=== PATIENT | male | born 1945 | race Caucasian/White ===

== ENCOUNTER → 2019-12-07 | Outpatient (CLI) | payer MEDICARE ==
[~2019-12-07] MED LIST: LIDOCAINE/PRILOCAINE CREAM 5GM TUBE TP ONE
[2019-12-07 17:00] VITALS: BP 130/62
== END | disposition home or self-care (01) ==
LOC: WHH 09:30
PROVIDERS: ATTEND Family Medicine
DX: S30.810A Abrasion of lower back and pelvis, initial encounter (principal); E11.40 Type 2 diabetes mellitus with diabetic neuropathy, unspecified; I10 Essential (primary) hypertension; E78.5 Hyperlipidemia, unspecified; X58.XXXA Exposure to other specified factors, initial encounter; Y93.89 Activity, other specified; Y92.89 Other specified places as the place of occurrence of the external cause; Y99.8 Other external cause status
CPT/HCPCS: 82948; G0463; J3490

== ENCOUNTER → 2019-12-18 | Outpatient (CLI) | payer MEDICARE ==
[2019-12-18 17:10] VITALS: BP 157/73
== END | disposition home or self-care (01) ==
LOC: WHH 14:00
PROVIDERS: ATTEND Family Medicine
DX: S31.821D Laceration without foreign body of left buttock, subsequent encounter (principal); E11.40 Type 2 diabetes mellitus with diabetic neuropathy, unspecified; I10 Essential (primary) hypertension; E78.5 Hyperlipidemia, unspecified; J43.9 Emphysema, unspecified; Z87.891 Personal history of nicotine dependence; Z79.82 Long term (current) use of aspirin; Z86.73 Personal history of transient ischemic attack (TIA), and cerebral infarction without residual deficits; X58.XXXD Exposure to other specified factors, subsequent encounter
CPT/HCPCS: 82948; A6210; A6248; G0463

== ENCOUNTER → 2019-12-25 | Outpatient (CLI) | payer MEDICARE ==
[2019-12-25 15:25] VITALS: BP 141/72
== END | disposition home or self-care (01) ==
LOC: WHH 13:30
PROVIDERS: ATTEND Family Medicine
DX: E11.622 Type 2 diabetes mellitus with other skin ulcer (principal); L89.321 Pressure ulcer of left buttock, stage 1; L98.411 Non-pressure chronic ulcer of buttock limited to breakdown of skin; E11.40 Type 2 diabetes mellitus with diabetic neuropathy, unspecified; E11.51 Type 2 diabetes mellitus with diabetic peripheral angiopathy without gangrene; I10 Essential (primary) hypertension; E78.5 Hyperlipidemia, unspecified; J44.9 Chronic obstructive pulmonary disease, unspecified; Z79.82 Long term (current) use of aspirin; Z87.891 Personal history of nicotine dependence; Z86.73 Personal history of transient ischemic attack (TIA), and cerebral infarction without residual deficits
CPT/HCPCS: A6210; G0463

== ENCOUNTER → 2019-12-27 | Outpatient (CLI) | payer MEDICARE | END | disposition home or self-care (01) | LOC: WHH 12:13 | PROVIDERS: ATTEND Family Medicine | DX: E11.622 Type 2 diabetes mellitus with other skin ulcer (principal); L89.321 Pressure ulcer of left buttock, stage 1; L98.411 Non-pressure chronic ulcer of buttock limited to breakdown of skin; E11.40 Type 2 diabetes mellitus with diabetic neuropathy, unspecified; E11.51 Type 2 diabetes mellitus with diabetic peripheral angiopathy without gangrene; I10 Essential (primary) hypertension; E78.5 Hyperlipidemia, unspecified; J44.9 Chronic obstructive pulmonary disease, unspecified; Z79.82 Long term (current) use of aspirin; Z87.891 Personal history of nicotine dependence; Z86.73 Personal history of transient ischemic attack (TIA), and cerebral infarction without residual deficits | CPT/HCPCS: 93922; 93925 ==

== ENCOUNTER → 2020-01-29 | Outpatient (CLI) | payer MEDICARE ==
[2020-01-29 15:12] VITALS: BP 102/79
== END | disposition home or self-care (01) ==
LOC: WHH 13:15
PROVIDERS: ATTEND Family Medicine
DX: E11.622 Type 2 diabetes mellitus with other skin ulcer (principal); L89.321 Pressure ulcer of left buttock, stage 1; L98.411 Non-pressure chronic ulcer of buttock limited to breakdown of skin; E11.40 Type 2 diabetes mellitus with diabetic neuropathy, unspecified; E11.51 Type 2 diabetes mellitus with diabetic peripheral angiopathy without gangrene; I25.10 Atherosclerotic heart disease of native coronary artery without angina pectoris; I25.2 Old myocardial infarction; I10 Essential (primary) hypertension; E78.5 Hyperlipidemia, unspecified; J43.9 Emphysema, unspecified; Z79.82 Long term (current) use of aspirin; Z87.891 Personal history of nicotine dependence; Z86.73 Personal history of transient ischemic attack (TIA), and cerebral infarction without residual deficits
CPT/HCPCS: A6213; G0463

== ENCOUNTER → 2020-02-12 | Outpatient (CLI) | payer MEDICARE ==
[2020-02-12 15:24] VITALS: BP 115/51
== END | disposition home or self-care (01) ==
LOC: WHH 14:00
PROVIDERS: ATTEND Family Medicine
DX: E11.622 Type 2 diabetes mellitus with other skin ulcer (principal); L89.323 Pressure ulcer of left buttock, stage 3; L98.412 Non-pressure chronic ulcer of buttock with fat layer exposed; E11.40 Type 2 diabetes mellitus with diabetic neuropathy, unspecified; E11.51 Type 2 diabetes mellitus with diabetic peripheral angiopathy without gangrene; I10 Essential (primary) hypertension; I25.10 Atherosclerotic heart disease of native coronary artery without angina pectoris; I25.2 Old myocardial infarction; E78.5 Hyperlipidemia, unspecified; J44.9 Chronic obstructive pulmonary disease, unspecified; Z79.82 Long term (current) use of aspirin; Z87.891 Personal history of nicotine dependence; Z86.73 Personal history of transient ischemic attack (TIA), and cerebral infarction without residual deficits
CPT/HCPCS: 11042; A6213; A6248

== ENCOUNTER → 2020-02-26 | Outpatient (CLI) | payer MEDICARE ==
[2020-02-26 16:49] VITALS: BP 134/77
== END | disposition home or self-care (01) ==
LOC: WHH 14:00
PROVIDERS: ATTEND Family Medicine
DX: E11.622 Type 2 diabetes mellitus with other skin ulcer (principal); L89.323 Pressure ulcer of left buttock, stage 3; L97.411 Non-pressure chronic ulcer of right heel and midfoot limited to breakdown of skin; E11.40 Type 2 diabetes mellitus with diabetic neuropathy, unspecified; E11.51 Type 2 diabetes mellitus with diabetic peripheral angiopathy without gangrene; I10 Essential (primary) hypertension; I25.10 Atherosclerotic heart disease of native coronary artery without angina pectoris; I25.2 Old myocardial infarction; E78.5 Hyperlipidemia, unspecified; J43.9 Emphysema, unspecified; Z79.82 Long term (current) use of aspirin; Z87.891 Personal history of nicotine dependence; Z86.73 Personal history of transient ischemic attack (TIA), and cerebral infarction without residual deficits
CPT/HCPCS: A6212; G0463

== ENCOUNTER → 2020-03-04 | Outpatient (CLI) | payer MEDICARE ==
[2020-03-04 15:55] VITALS: BP 120/58
== END | disposition home or self-care (01) ==
LOC: WHH 13:45
PROVIDERS: ATTEND Family Medicine
DX: E11.622 Type 2 diabetes mellitus with other skin ulcer (principal); L89.323 Pressure ulcer of left buttock, stage 3; L98.411 Non-pressure chronic ulcer of buttock limited to breakdown of skin; E11.40 Type 2 diabetes mellitus with diabetic neuropathy, unspecified; E11.51 Type 2 diabetes mellitus with diabetic peripheral angiopathy without gangrene; I10 Essential (primary) hypertension; I25.10 Atherosclerotic heart disease of native coronary artery without angina pectoris; I25.2 Old myocardial infarction; J44.9 Chronic obstructive pulmonary disease, unspecified; E78.5 Hyperlipidemia, unspecified; Z79.82 Long term (current) use of aspirin; Z87.891 Personal history of nicotine dependence; Z86.73 Personal history of transient ischemic attack (TIA), and cerebral infarction without residual deficits
CPT/HCPCS: A6210; G0463

== ENCOUNTER 2020-03-11 13:30 | Outpatient (CLI) | payer MEDICARE ==
[2020-03-11 15:05] VITALS: BP 100/47
== END 2020-03-11 15:47 | disposition home or self-care (01) ==
LOC: WHH 13:30
PROVIDERS: ATTEND Family Medicine
DX: E11.622 Type 2 diabetes mellitus with other skin ulcer (principal); L89.323 Pressure ulcer of left buttock, stage 3; L98.418 Non-pressure chronic ulcer of buttock with other specified severity; E11.40 Type 2 diabetes mellitus with diabetic neuropathy, unspecified; I10 Essential (primary) hypertension; I25.10 Atherosclerotic heart disease of native coronary artery without angina pectoris; I25.2 Old myocardial infarction; J44.9 Chronic obstructive pulmonary disease, unspecified; E78.5 Hyperlipidemia, unspecified; Z79.82 Long term (current) use of aspirin; Z87.891 Personal history of nicotine dependence; Z86.73 Personal history of transient ischemic attack (TIA), and cerebral infarction without residual deficits
CPT/HCPCS: G0463

== ENCOUNTER 2020-10-18 13:37 | Inpatient (IN) | payer MEDICARE ==
[~2020-10-18] VITALS: Ht 185.4 cm; Wt 88.5 kg
[2020-10-18 14:59] LABS: BASOPHILS % (AUTO) 0.1 % (0.0-5.0); HEMATOCRIT 39.4 % (42-54); LYMPHOCYTES % (AUTO) 7.8 % (21.0-51.0); MEAN CORPUSCULAR HEMOGLOBIN 29.8 pg (27.0-33.0); MEAN CORPUSCULAR VOLUME 87.8 fL (79-99); MONOCYTES % (AUTO) 9.8 % (3.0-13.0); NEUTROPHILS % (AUTO) 81.6 % (40.0-77.0); PLATELET COUNT (AUTO) 201 K/uL (130-400); RED BLOOD CELL COUNT(AUTO) 4.49 MIL/uL (4.50-6.20); RED CELL DISTRIBUTION WIDTH 12.9 % (11.0-15.5); WHITE BLOOD COUNT (AUTO) 7.3 K/uL (4.8-10.8)
[2020-10-18] MEDS ORDERED: 0.9%NACL 50ML 50 ML IV ONE (15:00)
[2020-10-18] MEDS ORDERED: CEFTRIAXONE 1G VIAL ONE (15:00)
[2020-10-18 15:05] LABS: INR 1.06 (0.85-1.15); PROTHROMBIN TIME 11.3 SEC (9.6-11.6)
[2020-10-18 15:06] LABS: CREATININE 1.3 mg/dL (0.5-1.5); POTASSIUM 4.4 mmol/L (3.5-5.1)
[2020-10-18 15:07] LABS: MAGNESIUM 1.8 mg/dL (1.80-2.40); PARTIAL THROMBOPLASTIN TIME 29.1 SEC (26.3-35.5)
[2020-10-18 15:16] LABS: ALBUMIN 2.9 g/dL (3.5-5.0); BILIRUBIN,TOTAL 0.6 mg/dL (0.2-1.0); TOTAL PROTEIN, SERUM 6.8 g/dL (6.0-8.3)
[2020-10-18] MEDS ORDERED: AZITHROMYCIN 500MG+NS 250ML 250 ML IV ONE (15:30)
[2020-10-18 15:36] LABS: B-TYPE NATRIURETIC PEPTIDE 42 pg/mL (0-100)
[2020-10-18] MEDS ORDERED: ACETAMINOPHEN 500 MG TABLET ONE (15:44)
[2020-10-18] MEDS ORDERED: DEXAMETHASONE SOD PHOSPHATE 10MG/ML 1ML VIAL ONE (16:01)
[2020-10-18] MEDS ORDERED: DOXYCYCLINE 100MG+NS 250ML 250 ML IV SCH (18:00)
[2020-10-18] MEDS ORDERED: ERGOCALCIFEROL (VITAMIN D2) 50,000 UNIT CAPSULE PO ONE (18:00)
[2020-10-18] MEDS ORDERED: CEFTRIAXONE 1G VIAL IV SCH (18:00)
[2020-10-18] MEDS ORDERED: ONDANSETRON 4MG INJ IV PRN (18:00)
[2020-10-18] MEDS ORDERED: ACETAMINOPHEN 325 MG TAB PO PRN (18:00)
[2020-10-18] MEDS ORDERED: ONDANSETRON 4MG INJ ONE (20:47)
[2020-10-18] MEDS ORDERED: ACETYLCYSTEINE 600 MG CAPSULE ONE (20:47)
[2020-10-18] MEDS ORDERED: FAMOTIDINE 20MG TAB ONE (20:47)
[2020-10-18] MEDS ORDERED: ACETYLCYSTEINE 600 MG CAPSULE PO SCH (21:00)
[2020-10-18] MEDS: FAMOTIDINE 20MG TAB PO SCH (21:00)
[2020-10-19 05:53] LABS: BASOPHILS % (AUTO) 0.2 % (0.0-5.0); HEMATOCRIT 40.8 % (42-54); LYMPHOCYTES % (AUTO) 11.8 % (21.0-51.0); MEAN CORPUSCULAR HEMOGLOBIN 29.7 pg (27.0-33.0); MEAN CORPUSCULAR HGB CONC 33.1 g/dL (32.0-36.0); MEAN CORPUSCULAR VOLUME 89.7 fL (79-99); MONOCYTES % (AUTO) 4.1 % (3.0-13.0); NEUTROPHILS % (AUTO) 82.9 % (40.0-77.0); PLATELET COUNT (AUTO) 198 K/uL (130-400); RED BLOOD CELL COUNT(AUTO) 4.55 MIL/uL (4.50-6.20); RED CELL DISTRIBUTION WIDTH 12.8 % (11.0-15.5); WHITE BLOOD COUNT (AUTO) 5.1 K/uL (4.8-10.8)
[2020-10-19 06:11] LABS: ALBUMIN 2.6 g/dL (3.5-5.0); BILIRUBIN,TOTAL 0.5 mg/dL (0.2-1.0); CREATININE 1.3 mg/dL (0.5-1.5); CRP QUANTITATIVE 130.7 mg/L (0.00-9.0); POTASSIUM 4.6 mmol/L (3.5-5.1); TOTAL PROTEIN, SERUM 6.9 g/dL (6.0-8.3)
[2020-10-19] MEDS ORDERED: DEXAMETHASONE 4 MG TAB PO SCH (09:00)
[2020-10-19] MEDS: FAMOTIDINE 20MG TAB PO SCH ×2 (09:00→21:00)
[2020-10-19] MEDS: ENOXAPARIN SODIUM 60 MG/0.6 ML SQ SCH (09:00)
[2020-10-19] MEDS: ASCORBIC ACID 500 MG TAB PO SCH (09:00)
[2020-10-19] MEDS: ZINC SULFATE 220 CAPSULE PO SCH (09:00)
[2020-10-19] MEDS ORDERED: ASCORBIC ACID 500 MG TAB ONE (10:07)
[2020-10-19] MEDS ORDERED: ENOXAPARIN SODIUM 60 MG/0.6 ML SQ ONE (10:07)
[2020-10-19] MEDS ORDERED: FAMOTIDINE 20MG TAB ONE (10:08)
[2020-10-19] MEDS ORDERED: ACETYLCYSTEINE 600 MG CAPSULE ONE (10:09)
[2020-10-19] MEDS ORDERED: ZINC SULFATE 220 CAPSULE ONE (10:09)
[2020-10-20 05:59] LABS: BASOPHILS % (AUTO) 0.1 % (0.0-5.0); HEMATOCRIT 41.8 % (42-54); LYMPHOCYTES % (AUTO) 6.7 % (21.0-51.0); MEAN CORPUSCULAR HEMOGLOBIN 29.2 pg (27.0-33.0); MEAN CORPUSCULAR HGB CONC 32.5 g/dL (32.0-36.0); MEAN CORPUSCULAR VOLUME 89.7 fL (79-99); MONOCYTES % (AUTO) 7.8 % (3.0-13.0); NEUTROPHILS % (AUTO) 84.9 % (40.0-77.0); PLATELET COUNT (AUTO) 234 K/uL (130-400); RED BLOOD CELL COUNT(AUTO) 4.66 MIL/uL (4.50-6.20); RED CELL DISTRIBUTION WIDTH 12.8 % (11.0-15.5); WHITE BLOOD COUNT (AUTO) 10.9 K/uL (4.8-10.8)
[2020-10-20 06:44] LABS: ALBUMIN 2.7 g/dL (3.5-5.0); BILIRUBIN,TOTAL 0.5 mg/dL (0.2-1.0); CREATININE 1.3 mg/dL (0.5-1.5); CRP QUANTITATIVE 111.6 mg/L (0.00-9.0); POTASSIUM 4.5 mmol/L (3.5-5.1); TOTAL PROTEIN, SERUM 7.3 g/dL (6.0-8.3)
[2020-10-20] MEDS ORDERED: CLINDAMYCIN IVPB 300MG/50ML 50 ML IV SCH (06:45)
[2020-10-20] MEDS: ZINC SULFATE 220 CAPSULE PO SCH (09:00)
[2020-10-20] MEDS: DEXAMETHASONE SOD PHOSPHATE 4 MG/ML 1ML VIAL IVP SCH (09:00)
[2020-10-20] MEDS: FAMOTIDINE 20MG TAB PO SCH ×2 (09:00→21:00)
[2020-10-20] MEDS: ASCORBIC ACID 500 MG TAB PO SCH (09:00)
[2020-10-20] MEDS: ENOXAPARIN SODIUM 60 MG/0.6 ML SQ SCH (09:00)
[2020-10-20] MEDS ORDERED: DOXYCYCLINE HYCLATE 100 MG TABLET PO SCH (09:00)
[2020-10-20] MEDS ORDERED: DOXYCYCLINE HYCLATE 100 MG TABLET PO ONE ×2 (09:44→21:46)
[2020-10-20] MEDS ORDERED: ACETYLCYSTEINE 600 MG CAPSULE ONE ×2 (09:44→20:45)
[2020-10-20] MEDS ORDERED: ENOXAPARIN SODIUM 60 MG/0.6 ML SQ ONE (09:44)
[2020-10-20] MEDS ORDERED: FAMOTIDINE 20MG TAB ONE ×2 (09:44→20:45)
[2020-10-20] MEDS ORDERED: ASCORBIC ACID 500 MG TAB ONE (09:44)
[2020-10-20] MEDS ORDERED: ZINC SULFATE 220 CAPSULE ONE (09:45)
[2020-10-20] MEDS ORDERED: DEXAMETHASONE SOD PHOSPHATE 4 MG/ML 1ML VIAL ONE (09:45)
[2020-10-20] MEDS: INSULIN HUMULIN R 100 UNIT/ML 3ML SQ SCH ×3 (11:30→21:00)
[2020-10-20] MEDS ORDERED: 0.9% NACL 250ML 250 ML IV ONE (14:42)
[2020-10-20] MEDS ORDERED: CEFTRIAXONE 1G VIAL ONE (17:43)
[2020-10-20] MEDS ORDERED: METOPROLOL TARTRATE 25 MG TAB ONE (20:46)
[2020-10-20] MEDS ORDERED: DOXYCYCLINE 100MG+NS 250ML 250 ML IV ONE (20:46)
[2020-10-20] MEDS ORDERED: ATORVASTATIN 40 MG TABLET ONE (20:46)
[2020-10-20] MEDS ORDERED: INSULIN HUMULIN R 100 UNIT/ML 3ML ONE (20:52)
[2020-10-20] MEDS: METOPROLOL TARTRATE 25 MG TAB PO SCH (21:00)
[2020-10-20] MEDS: ATORVASTATIN 20 MG TABLET PO SCH (21:00)
[2020-10-21 05:43] LABS: HEMATOCRIT 39.8 % (42-54); LYMPHOCYTES % (AUTO) 8.5 % (21.0-51.0); MEAN CORPUSCULAR HEMOGLOBIN 30.4 pg (27.0-33.0); MEAN CORPUSCULAR HGB CONC 33.7 g/dL (32.0-36.0); MEAN CORPUSCULAR VOLUME 90.2 fL (79-99); MONOCYTES % (AUTO) 6.5 % (3.0-13.0); PLATELET COUNT (AUTO) 227 K/uL (130-400); RED BLOOD CELL COUNT(AUTO) 4.41 MIL/uL (4.50-6.20); RED CELL DISTRIBUTION WIDTH 12.8 % (11.0-15.5); WHITE BLOOD COUNT (AUTO) 8.3 K/uL (4.8-10.8)
[2020-10-21 06:00] LABS: ALBUMIN 2.6 g/dL (3.5-5.0); BILIRUBIN,TOTAL 0.5 mg/dL (0.2-1.0); CRP QUANTITATIVE 175.3 mg/L (0.00-9.0); POTASSIUM 4.9 mmol/L (3.5-5.1); TOTAL PROTEIN, SERUM 7.2 g/dL (6.0-8.3)
[2020-10-21] MEDS: INSULIN HUMULIN R 100 UNIT/ML 3ML SQ SCH ×4 (07:30→21:02)
[2020-10-21] MEDS: DEXAMETHASONE SOD PHOSPHATE 4 MG/ML 1ML VIAL IVP SCH (09:00)
[2020-10-21] MEDS: FAMOTIDINE 20MG TAB PO SCH ×2 (09:00→21:00)
[2020-10-21] MEDS: ENOXAPARIN SODIUM 60 MG/0.6 ML SQ SCH (09:00)
[2020-10-21] MEDS: ASPIRIN 81MG CHEW TAB PO SCH (09:00)
[2020-10-21] MEDS: ZINC SULFATE 220 CAPSULE PO SCH (09:00)
[2020-10-21] MEDS: METOPROLOL TARTRATE 25 MG TAB PO SCH ×2 (09:00→21:00)
[2020-10-21] MEDS: ASCORBIC ACID 500 MG TAB PO SCH (09:00)
[2020-10-21] MEDS ORDERED: PHARMACY COMMUNICATION MISC SCH (09:15)
[2020-10-21] MEDS ORDERED: ASPIRIN 81MG CHEW TAB ONE (09:34)
[2020-10-21] MEDS ORDERED: DEXAMETHASONE SOD PHOSPHATE 4 MG/ML 1ML VIAL ONE (09:35)
[2020-10-21] MEDS ORDERED: METOPROLOL TARTRATE 25 MG TAB ONE (09:35)
[2020-10-21] MEDS ORDERED: DOXYCYCLINE HYCLATE 100 MG TABLET PO ONE (09:36)
[2020-10-21] MEDS ORDERED: ENOXAPARIN SODIUM 60 MG/0.6 ML SQ ONE (09:36)
[2020-10-21] MEDS ORDERED: ASCORBIC ACID 500 MG TAB ONE (09:36)
[2020-10-21] MEDS ORDERED: ACETYLCYSTEINE 600 MG CAPSULE ONE (09:37)
[2020-10-21] MEDS ORDERED: ZINC SULFATE 220 CAPSULE ONE (09:37)
[2020-10-21] MEDS ORDERED: FAMOTIDINE 20MG TAB ONE (09:37)
[2020-10-21] MEDS ORDERED: GLIP2.5T PO (13:09)
[2020-10-21] MEDS ORDERED: LOSA100T2 PO (13:09)
[2020-10-21] MEDS ORDERED: ATOR40TA71 PO (13:09)
[2020-10-21] MEDS ORDERED: FURO20TA4 PO (13:09)
[2020-10-21] MEDS ORDERED: ASPI-1443 PO (13:09)
[2020-10-21] MEDS ORDERED: MULT-1192 PO (13:09)
[2020-10-21] MEDS ORDERED: METO25TA6 PO (13:09)
[2020-10-21] MEDS ORDERED: IBUP-2733 PO (13:09)
[2020-10-21] MEDS ORDERED: GABA-529 PO (13:09)
[2020-10-21] MEDS ORDERED: INSULIN HUMULIN R 100 UNIT/ML 3ML ONE (13:51)
[2020-10-21] MEDS ORDERED: REMDESIVIR (EUA) 520 200 MG in 0.9% NACL 250ML 250 ML IV ONE (14:00)
[2020-10-21] MEDS ORDERED: COMPOUND IV REFRIGERATED 1 EACH IVSOLN MISC PRN (14:00)
[2020-10-21 14:20] VITALS: BP 148/79
[2020-10-21 16:00] VITALS: BP 140/53
[2020-10-21 16:50] LABS: HEMOGLOBIN A1C 7.4 % (4.0-6.0)
[2020-10-21 18:57] LABS: APPEARANCE,URINE CLOUDY (CLEAR); BILIRUBIN,URINE SMALL (NEGATIVE); GLUCOSE, URINE (UA) NEGATIVE (NEGATIVE); KETONES,URINE NEGATIVE (NEGATIVE); LEUKOCYTE ESTERASE ,URINE SMALL (NEGATIVE); NITRATE,URINE NEGATIVE (NEGATIVE); OCCULT BLOOD,URINE LARGE (NEGATIVE); PH,URINE 5.5 (5.0-8.0); PROTEIN,URINE 100 mg/dL (NEGATIVE)
[2020-10-21 19:01] LABS: COLOR,URINE AMBER (YELLOW)
[2020-10-21 19:23] LABS: BACTERIA,URINE Few /HPF (None Seen); MUCUS,URINE Few LPF (None Seen); SQUAMOUS EPITHELIAL CELL,UR 0-2 /HPF (0-2); YEAST,URINE BUDDING Moderate /HPF (None Seen)
[2020-10-21 20:24] VITALS: BP 128/54
[2020-10-21] MEDS: ATORVASTATIN 20 MG TABLET PO SCH (21:00)
[2020-10-21] MEDS: ACETAMINOPHEN 325 MG TAB PO PRN (21:00)
[2020-10-21] MEDS ORDERED: HYDRALAZINE 20MG/ML VIAL IV PRN (22:45)
[2020-10-22] VITALS (8 sets, daily range): BP systolic 122–133; BP diastolic 49–76
[2020-10-22] MEDS: INSULIN HUMULIN R 100 UNIT/ML 3ML SQ SCH ×4 (05:35→21:46)
[2020-10-22 06:09] LABS: BASOPHILS % (AUTO) 0.1 % (0.0-5.0); HEMATOCRIT 38.1 % (42-54); LYMPHOCYTES % (AUTO) 9.1 % (21.0-51.0); MEAN CORPUSCULAR HGB CONC 33.3 g/dL (32.0-36.0); MEAN CORPUSCULAR VOLUME 90.1 fL (79-99); NEUTROPHILS % (AUTO) 82.5 % (40.0-77.0); PLATELET COUNT (AUTO) 254 K/uL (130-400); RED BLOOD CELL COUNT(AUTO) 4.23 MIL/uL (4.50-6.20); RED CELL DISTRIBUTION WIDTH 12.7 % (11.0-15.5)
[2020-10-22 06:34] LABS: ALBUMIN 2.4 g/dL (3.5-5.0); BILIRUBIN,TOTAL 0.4 mg/dL (0.2-1.0); CREATININE 1.1 mg/dL (0.5-1.5); CRP QUANTITATIVE 75.3 mg/L (0.00-9.0); POTASSIUM 4.3 mmol/L (3.5-5.1); TOTAL PROTEIN, SERUM 6.7 g/dL (6.0-8.3)
[2020-10-22] MEDS: ASPIRIN 81MG CHEW TAB PO SCH (09:38)
[2020-10-22] MEDS: ZINC SULFATE 220 CAPSULE PO SCH (09:39)
[2020-10-22] MEDS: ENOXAPARIN SODIUM 60 MG/0.6 ML SQ SCH (09:39)
[2020-10-22] MEDS: FAMOTIDINE 20MG TAB PO SCH ×2 (09:39→21:31)
[2020-10-22] MEDS: ASCORBIC ACID 500 MG TAB PO SCH (09:39)
[2020-10-22] MEDS: DEXAMETHASONE SOD PHOSPHATE 4 MG/ML 1ML VIAL IVP SCH (09:40)
[2020-10-22] MEDS: REMDESIVIR (EUA) 520 100 MG in 0.9% NACL 250ML 250 ML IV SCH (13:46)
[2020-10-22] MEDS: ACETAMINOPHEN 325 MG TAB PO PRN (13:51)
[2020-10-22] MEDS: CEFTRIAXONE 1G VIAL IVP SCH (18:29)
[2020-10-22] MEDS: ATORVASTATIN 20 MG TABLET PO SCH (21:31)
[2020-10-23 03:52] VITALS: BP 132/72
[2020-10-23 04:53] LABS: BASOPHILS % (AUTO) 0.3 % (0.0-5.0); HEMATOCRIT 39.2 % (42-54); LYMPHOCYTES % (AUTO) 11.1 % (21.0-51.0); MEAN CORPUSCULAR HGB CONC 33.4 g/dL (32.0-36.0); MEAN CORPUSCULAR VOLUME 89.7 fL (79-99); MONOCYTES % (AUTO) 7.8 % (3.0-13.0); NEUTROPHILS % (AUTO) 79.1 % (40.0-77.0); PLATELET COUNT (AUTO) 274 K/uL (130-400); RED BLOOD CELL COUNT(AUTO) 4.37 MIL/uL (4.50-6.20); RED CELL DISTRIBUTION WIDTH 12.5 % (11.0-15.5); WHITE BLOOD COUNT (AUTO) 9.7 K/uL (4.8-10.8)
[2020-10-23 05:21] LABS: ALBUMIN 2.5 g/dL (3.5-5.0); BILIRUBIN,TOTAL 0.3 mg/dL (0.2-1.0); CREATININE 1.2 mg/dL (0.5-1.5); CRP QUANTITATIVE 38.4 mg/L (0.00-9.0); POTASSIUM 4.4 mmol/L (3.5-5.1); TOTAL PROTEIN, SERUM 7.1 g/dL (6.0-8.3)
[2020-10-23] MEDS: INSULIN HUMULIN R 100 UNIT/ML 3ML SQ SCH ×4 (05:36→21:49)
[2020-10-23] MEDS: REMDESIVIR LABS MISC SCH (06:00)
[2020-10-23 08:21] VITALS: BP 149/52
[2020-10-23] MEDS: DEXAMETHASONE SOD PHOSPHATE 4 MG/ML 1ML VIAL IVP SCH (09:44)
[2020-10-23] MEDS: ASPIRIN 81MG CHEW TAB PO SCH (09:44)
[2020-10-23] MEDS: FAMOTIDINE 20MG TAB PO SCH ×2 (09:44→21:45)
[2020-10-23] MEDS: ASCORBIC ACID 500 MG TAB PO SCH (09:44)
[2020-10-23] MEDS: ZINC SULFATE 220 CAPSULE PO SCH (09:44)
[2020-10-23] MEDS: ENOXAPARIN SODIUM 60 MG/0.6 ML SQ SCH (09:48)
[2020-10-23] MEDS: PANTOPRAZOLE 40 MG TAB DR PO SCH ×2 (10:31→21:45)
[2020-10-23] MEDS: TICAGRELOR 90 MG TABLET PO SCH ×2 (10:31→21:45)
[2020-10-23 12:00] VITALS: BP 130/70
[2020-10-23] MEDS: REMDESIVIR (EUA) 520 100 MG in 0.9% NACL 250ML 250 ML IV SCH (14:09)
[2020-10-23] MEDS: CEFTRIAXONE 1G VIAL IVP SCH (16:41)
[2020-10-23 16:51] VITALS: BP 142/71
[2020-10-23 19:00] VITALS: BP 137/65
[2020-10-23] MEDS: ATORVASTATIN 20 MG TABLET PO SCH (21:45)
[2020-10-24] VITALS (7 sets, daily range): BP systolic 128–162; BP diastolic 64–83
[2020-10-24 05:21] LABS: BASOPHILS % (AUTO) 0.4 % (0.0-5.0); EOSINOPHILS % (AUTO) 0.2 % (0.0-8.0); HEMATOCRIT 42.9 % (42-54); LYMPHOCYTES % (AUTO) 8.8 % (21.0-51.0); MEAN CORPUSCULAR HEMOGLOBIN 29.7 pg (27.0-33.0); MEAN CORPUSCULAR HGB CONC 33.6 g/dL (32.0-36.0); MEAN CORPUSCULAR VOLUME 88.5 fL (79-99); MONOCYTES % (AUTO) 6.9 % (3.0-13.0); NEUTROPHILS % (AUTO) 81.3 % (40.0-77.0); PLATELET COUNT (AUTO) 310 K/uL (130-400); RED BLOOD CELL COUNT(AUTO) 4.85 MIL/uL (4.50-6.20); RED CELL DISTRIBUTION WIDTH 12.6 % (11.0-15.5); WHITE BLOOD COUNT (AUTO) 11.8 K/uL (4.8-10.8)
[2020-10-24 05:52] LABS: ALBUMIN 2.8 g/dL (3.5-5.0); BILIRUBIN,TOTAL 0.5 mg/dL (0.2-1.0); CREATININE 1.1 mg/dL (0.5-1.5); POTASSIUM 4.3 mmol/L (3.5-5.1); TOTAL PROTEIN, SERUM 6.5 g/dL (6.0-8.3)
[2020-10-24] MEDS: INSULIN HUMULIN R 100 UNIT/ML 3ML SQ SCH ×5 (06:17→20:53)
[2020-10-24] MEDS: ENOXAPARIN SODIUM 40 MG/0.4 ML SYRINGE SQ SCH (09:24)
[2020-10-24] MEDS: ZINC SULFATE 220 CAPSULE PO SCH (09:24)
[2020-10-24] MEDS: TICAGRELOR 90 MG TABLET PO SCH ×2 (09:25→20:49)
[2020-10-24] MEDS: PANTOPRAZOLE 40 MG TAB DR PO SCH ×2 (09:25→20:50)
[2020-10-24] MEDS: ASCORBIC ACID 500 MG TAB PO SCH (09:25)
[2020-10-24] MEDS: FAMOTIDINE 20MG TAB PO SCH ×2 (09:25→20:50)
[2020-10-24] MEDS: ASPIRIN 81MG CHEW TAB PO SCH (09:25)
[2020-10-24] MEDS: DEXAMETHASONE SOD PHOSPHATE 4 MG/ML 1ML VIAL IVP SCH (09:26)
[2020-10-24] MEDS: LOSARTAN 50 MG TABLET PO SCH ×2 (11:17→20:50)
[2020-10-24] MEDS: METOPROLOL TARTRATE 25 MG TAB PO SCH ×2 (11:17→20:50)
[2020-10-24] MEDS: MULTIVITAMIN TABLET PO SCH (11:22)
[2020-10-24] MEDS: SENNOSIDES 8.6 MG TABLET PO SCH (12:18)
[2020-10-24] MEDS: DOCUSATE SODIUM 100 MG CAP PO SCH (12:18)
[2020-10-24] MEDS: POLYETHYLENE GLYCOL 3350 17 GM POWD.PACK PO SCH (12:18)
[2020-10-24] MEDS: REMDESIVIR (EUA) 520 100 MG in 0.9% NACL 250ML 250 ML IV SCH (13:39)
[2020-10-24] MEDS: FUROSEMIDE 20 MG TABLET PO SCH (14:09)
[2020-10-24] MEDS ORDERED: BISACODYL 10 MG SUPP.RECT RC PRN (15:15)
[2020-10-24] MEDS ORDERED: 0.9%NACL 50ML 50 ML IV ONE (16:10)
[2020-10-24] MEDS: CEFTRIAXONE 1G VIAL IVP SCH (17:58)
[2020-10-24] MEDS: HONEY 1 APPL/ML TUBE TP SCH (17:59)
[2020-10-24 18:13] LABS: MEAN CORPUSCULAR HEMOGLOBIN 29.4 pg (27.0-33.0); MEAN CORPUSCULAR HGB CONC 33.3 g/dL (32.0-36.0); MEAN CORPUSCULAR VOLUME 88.5 fL (79-99); PLATELET COUNT (AUTO) 317 K/uL (130-400); RED CELL DISTRIBUTION WIDTH 12.5 % (11.0-15.5); WHITE BLOOD COUNT (AUTO) 9.3 K/uL (4.8-10.8)
[2020-10-24 19:17] LABS: BAND NEUTROPHILS % (MANUAL) 2 % (0-2); LYMPHOCYTES % (MANUAL) 10 % (22-44); MONOCYTES % (MANUAL) 4 % (2-9); REACTIVE LYMPHOCYTES 2 % (0-0); SEGMENTED NEUTROPHILS % 82 % (40-70)
[2020-10-24 19:18] LABS: MAN.DIFF COMMENT-IMPRESSION MANUAL DIFFERENTIAL
[2020-10-24] MEDS: REMDESIVIR LABS MISC SCH (19:28)
[2020-10-24] MEDS: ATORVASTATIN 20 MG TABLET PO SCH (20:49)
[2020-10-25 00:40] VITALS: BP 121/67
[2020-10-25 04:00] VITALS: BP 141/77
[2020-10-25 05:07] LABS: BASOPHILS % (AUTO) 0.5 % (0.0-5.0); EOSINOPHILS % (AUTO) 0.4 % (0.0-8.0); LYMPHOCYTES % (AUTO) 6.9 % (21.0-51.0); MEAN CORPUSCULAR HGB CONC 33.9 g/dL (32.0-36.0); MEAN CORPUSCULAR VOLUME 88.5 fL (79-99); MONOCYTES % (AUTO) 7.3 % (3.0-13.0); NEUTROPHILS % (AUTO) 81.4 % (40.0-77.0); PLATELET COUNT (AUTO) 361 K/uL (130-400); RED CELL DISTRIBUTION WIDTH 12.7 % (11.0-15.5); WHITE BLOOD COUNT (AUTO) 12.7 K/uL (4.8-10.8)
[2020-10-25 05:29] LABS: ALBUMIN 3.1 g/dL (3.5-5.0); BILIRUBIN,TOTAL 0.9 mg/dL (0.2-1.0); CREATININE 1.2 mg/dL (0.5-1.5); CRP QUANTITATIVE 43.9 mg/L (0.00-9.0); POTASSIUM 4.4 mmol/L (3.5-5.1); TOTAL PROTEIN, SERUM 6.9 g/dL (6.0-8.3)
[2020-10-25] MEDS: INSULIN HUMULIN R 100 UNIT/ML 3ML SQ SCH ×3 (06:09→16:20)
[2020-10-25 08:00] VITALS: BP 136/82
[2020-10-25] MEDS: TICAGRELOR 90 MG TABLET PO SCH (09:01)
[2020-10-25] MEDS: DEXAMETHASONE SOD PHOSPHATE 4 MG/ML 1ML VIAL IVP SCH (09:01)
[2020-10-25] MEDS: ZINC SULFATE 220 CAPSULE PO SCH (09:01)
[2020-10-25] MEDS: ENOXAPARIN SODIUM 40 MG/0.4 ML SYRINGE SQ SCH (09:01)
[2020-10-25] MEDS: LOSARTAN 50 MG TABLET PO SCH (09:02)
[2020-10-25] MEDS: MULTIVITAMIN TABLET PO SCH (09:02)
[2020-10-25] MEDS: ASCORBIC ACID 500 MG TAB PO SCH (09:02)
[2020-10-25] MEDS: FAMOTIDINE 20MG TAB PO SCH (09:02)
[2020-10-25] MEDS: FUROSEMIDE 20 MG TABLET PO SCH (09:02)
[2020-10-25] MEDS: ASPIRIN 81MG CHEW TAB PO SCH (09:02)
[2020-10-25] MEDS: METOPROLOL TARTRATE 25 MG TAB PO SCH (09:03)
[2020-10-25] MEDS: DOCUSATE SODIUM 100 MG CAP PO SCH (09:03)
[2020-10-25] MEDS: POLYETHYLENE GLYCOL 3350 17 GM POWD.PACK PO SCH (09:03)
[2020-10-25] MEDS: HONEY 1 APPL/ML TUBE TP SCH (09:03)
[2020-10-25] MEDS: SENNOSIDES 8.6 MG TABLET PO SCH (09:03)
[2020-10-25] MEDS: PANTOPRAZOLE 40 MG TAB DR PO SCH (09:03)
[2020-10-25 12:00] VITALS: BP 127/67
[2020-10-25] MEDS ORDERED: CEPHALEXIN 500 MG CAPSULE PO SCH (12:30)
[2020-10-25] MEDS: REMDESIVIR (EUA) 520 100 MG in 0.9% NACL 250ML 250 ML IV SCH (13:33)
[2020-10-25 16:06] VITALS: BP 127/71
[2020-10-26] MEDS ORDERED: DEXAMETHASONE 4 MG TAB PO SCH (09:00)
== END 2020-10-25 22:30 | DRG 177 ==
LOC: EDH 13:37 → EDHIP 17:50 → 2AH 10-21 09:18
PROVIDERS: ADMIT Internal Medicine; ATTEND Internal Medicine
PROC: XW13325 Transfusion of Convalescent Plasma (Nonautologous) into Peripheral Vein, Percutaneous Approach, New Technology Group 5 (ICD-10-PCS; 2020-10-20)
PROC: XW033E5 Introduction of Remdesivir Anti-infective into Peripheral Vein, Percutaneous Approach, New Technology Group 5 (ICD-10-PCS; principal; 2020-10-21)
DX: U07.1 COVID-19 (principal); J12.82 Pneumonia due to coronavirus disease 2019; J96.21 Acute and chronic respiratory failure with hypoxia; N39.0 Urinary tract infection, site not specified; E78.5 Hyperlipidemia, unspecified; W01.0XXA Fall on same level from slipping, tripping and stumbling without subsequent striking against object, initial encounter; I25.10 Atherosclerotic heart disease of native coronary artery without angina pectoris; I10 Essential (primary) hypertension; E78.6 Lipoprotein deficiency; Z60.2 Problems related to living alone; K57.30 Diverticulosis of large intestine without perforation or abscess without bleeding; K59.00 Constipation, unspecified; R54 Age-related physical debility; I71.4 Abdominal aortic aneurysm, without rupture; M54.9 Dorsalgia, unspecified; R33.9 Retention of urine, unspecified; N28.1 Cyst of kidney, acquired; Z04.3 Encounter for examination and observation following other accident; Z86.73 Personal history of transient ischemic attack (TIA), and cerebral infarction without residual deficits; I25.2 Old myocardial infarction; Z95.5 Presence of coronary angioplasty implant and graft; Y92.009 Unspecified place in unspecified non-institutional (private) residence as the place of occurrence of the external cause; Y93.89 Activity, other specified; Y99.8 Other external cause status
CPT/HCPCS: 36415; 70450; 71045; 72125; 72170; 74018; 74176; 80053; 81001; 82140; 82550; 82728; 82948; 83036; 83605; 83615; 83735; 83880; 84145; 85025; 85378; 85610; 85730; 86140; 86850; 86900; 86901; 86927; 87088; 87426; 92610; 93005; 97039; G0378; J0456; J0696; J1100; J1650; J1815; J2405; J3490; J7050

== ENCOUNTER 2020-11-13 12:15 | Emergency (ER) | payer MEDICARE ==
[~2020-11-13 12:15] MED LIST changes: +ASPI-1443 PO; +ATOR40TA71 PO; +FURO20TA4 PO; +GABA-529 PO; +GLIP2.5T PO; +IBUP-2733 PO; -LIDOCAINE/PRILOCAINE CREAM 5GM TUBE TP ONE; +LOSA100T2 PO; +METO25TA6 PO; +MULT-1192 PO
[2020-11-13 13:35] LABS: APPEARANCE,URINE SL CLOUDY (CLEAR); BILIRUBIN,URINE SMALL (NEGATIVE); COLOR,URINE YELLOW (YELLOW); GLUCOSE, URINE (UA) NEGATIVE (NEGATIVE); KETONES,URINE NEGATIVE (NEGATIVE); LEUKOCYTE ESTERASE ,URINE MODERATE (NEGATIVE); NITRATE,URINE NEGATIVE (NEGATIVE); OCCULT BLOOD,URINE SMALL (NEGATIVE); PROTEIN,URINE 100 mg/dL (NEGATIVE)
[2020-11-13 14:02] LABS: BACTERIA,URINE Moderate /HPF (None Seen); MUCUS,URINE Rare LPF (None Seen); SQUAMOUS EPITHELIAL CELL,UR 0-2 /HPF (0-2); WBC,URINE 26-50 /HPF (0-1); YEAST,URINE BUDDING Few /HPF (None Seen)
== END 2020-11-13 15:04 | disposition home or self-care (01) ==
LOC: EDH 12:15
DX: R33.0 Drug induced retention of urine (principal); T83.091A Other mechanical complication of indwelling urethral catheter, initial encounter; E78.00 Pure hypercholesterolemia, unspecified; I10 Essential (primary) hypertension; I25.2 Old myocardial infarction
CPT/HCPCS: 51702; 81001; 87077; 87088; 87186

== ENCOUNTER 2020-11-19 10:51 | Observation (INO) | payer MEDICARE ==
[~2020-11-19] VITALS: Ht 185.4 cm; Wt 92.0 kg
[2020-11-19 11:43] LABS: BASOPHILS % (AUTO) 0.3 % (0.0-5.0); EOSINOPHILS % (AUTO) 3.8 % (0.0-8.0); HEMATOCRIT 39.1 % (42-54); LYMPHOCYTES % (AUTO) 11.7 % (21.0-51.0); MEAN CORPUSCULAR HEMOGLOBIN 29.9 pg (27.0-33.0); MEAN CORPUSCULAR HGB CONC 33.2 g/dL (32.0-36.0); MEAN CORPUSCULAR VOLUME 89.9 fL (79-99); MONOCYTES % (AUTO) 6.9 % (3.0-13.0); NEUTROPHILS % (AUTO) 76.4 % (40.0-77.0); PLATELET COUNT (AUTO) 207 K/uL (130-400); RED BLOOD CELL COUNT(AUTO) 4.35 MIL/uL (4.50-6.20); RED CELL DISTRIBUTION WIDTH 13.3 % (11.0-15.5); WHITE BLOOD COUNT (AUTO) 6.8 K/uL (4.8-10.8)
[2020-11-19 11:56] LABS: CREATININE 1.2 mg/dL (0.5-1.5); POTASSIUM 4.4 mmol/L (3.5-5.1)
[2020-11-19 12:00] LABS: BILIRUBIN,TOTAL 0.3 mg/dL (0.2-1.0)
[2020-11-19 12:03] LABS: APPEARANCE,URINE Turbid (CLEAR); BILIRUBIN,URINE Negative (NEGATIVE); COLOR,URINE Yellow (YELLOW); GLUCOSE, URINE (UA) Negative (NEGATIVE); KETONES,URINE Trace mg/dL (NEGATIVE); LEUKOCYTE ESTERASE ,URINE Large (NEGATIVE); NITRATE,URINE Negative (NEGATIVE); OCCULT BLOOD,URINE Moderate (NEGATIVE); PH,URINE 5.5 (5.0-8.0); PROTEIN,URINE POS 1+ mg/dL (NEGATIVE); UROBILINOGEN,URINE 0.2 mg/dL (0.2-1.0)
[2020-11-19 12:15] LABS: BACTERIA,URINE Many /HPF (None Seen)
[2020-11-19 12:16] LABS: SQUAMOUS EPITHELIAL CELL,UR 0-2 /HPF (0-2); WBC,URINE >100 /HPF (0-1); YEAST,URINE BUDDING Few /HPF (None Seen)
[2020-11-19 12:17] LABS: RBC,URINE 0-1 /HPF (0-1)
[2020-11-19] MEDS ORDERED: CEFTRIAXONE SODIUM 1 GM ONE (12:35)
[2020-11-19] MEDS ORDERED: SODIUM CHLORIDE 0.9% 50 ML IV ONE (12:36)
[2020-11-19] MEDS ORDERED: SODIUM CHLORIDE 0.9% 1000ML 0 ML IV ONE (13:10)
[2020-11-19] MEDS: LACTATED RINGERS 1000ML 1,000 ML IV SCH (14:15)
[2020-11-19] MEDS ORDERED: ASPIRIN 81MG TAB.CHEW PO SCH (15:00)
[2020-11-19] MEDS ORDERED: SODIUM CHLORIDE 0.9% 1000ML 1,000 ML IV ONE (16:22)
[2020-11-19] MEDS ORDERED: LACTATED RINGERS 1000ML 1,000 ML IV ONE (16:24)
[2020-11-19] MEDS: INSULIN HUMULIN R 100 UNIT/ML 3ML SQ SCH ×2 (16:30→21:00)
[2020-11-19] MEDS: LOSARTAN 50 MG TABLET PO SCH (21:00)
[2020-11-19] MEDS: CEFTRIAXONE SODIUM 1 GM IVP SCH (21:00)
[2020-11-20] MEDS ORDERED: LACTATED RINGERS 1000ML 1,000 ML IV ONE (01:58)
[2020-11-20 05:30] VITALS: BP 167/85
[2020-11-20] MEDS: LACTATED RINGERS 1000ML 1,000 ML IV SCH ×2 (05:36→20:34)
[2020-11-20] MEDS: INSULIN HUMULIN R 100 UNIT/ML 3ML SQ SCH ×4 (06:00→20:35)
[2020-11-20 06:25] LABS: BASOPHILS % (AUTO) 0.5 % (0.0-5.0); EOSINOPHILS % (AUTO) 6.5 % (0.0-8.0); MEAN CORPUSCULAR HEMOGLOBIN 29.6 pg (27.0-33.0); MEAN CORPUSCULAR HGB CONC 32.4 g/dL (32.0-36.0); MEAN CORPUSCULAR VOLUME 91.4 fL (79-99); MONOCYTES % (AUTO) 8.6 % (3.0-13.0); NEUTROPHILS % (AUTO) 61.5 % (40.0-77.0); PLATELET COUNT (AUTO) 188 K/uL (130-400); RED BLOOD CELL COUNT(AUTO) 4.05 MIL/uL (4.50-6.20); RED CELL DISTRIBUTION WIDTH 13.4 % (11.0-15.5); WHITE BLOOD COUNT (AUTO) 5.6 K/uL (4.8-10.8)
[2020-11-20 06:36] LABS: POTASSIUM 4.3 mmol/L (3.5-5.1)
[2020-11-20 08:33] VITALS: BP 151/60
[2020-11-20 11:21] VITALS: BP 119/60
[2020-11-20] MEDS: CEFTRIAXONE SODIUM 1 GM IVP SCH ×2 (12:44→20:34)
[2020-11-20] MEDS: ASPIRIN 81MG TAB.CHEW PO SCH (12:44)
[2020-11-20] MEDS: LOSARTAN 50 MG TABLET PO SCH ×2 (12:44→20:34)
[2020-11-20 16:16] VITALS: BP 125/70
[2020-11-20 20:12] VITALS: BP 120/69
[2020-11-21 00:08] VITALS: BP 151/61
[2020-11-21 04:08] VITALS: BP 149/64
[2020-11-21 05:22] LABS: BASOPHILS % (AUTO) 0.5 % (0.0-5.0); EOSINOPHILS % (AUTO) 6.7 % (0.0-8.0); HEMATOCRIT 35.6 % (42-54); MEAN CORPUSCULAR HEMOGLOBIN 29.6 pg (27.0-33.0); MEAN CORPUSCULAR HGB CONC 33.1 g/dL (32.0-36.0); MEAN CORPUSCULAR VOLUME 89.4 fL (79-99); MONOCYTES % (AUTO) 9.7 % (3.0-13.0); PLATELET COUNT (AUTO) 187 K/uL (130-400); RED BLOOD CELL COUNT(AUTO) 3.98 MIL/uL (4.50-6.20); RED CELL DISTRIBUTION WIDTH 13.1 % (11.0-15.5); WHITE BLOOD COUNT (AUTO) 5.6 K/uL (4.8-10.8)
[2020-11-21 05:33] LABS: POTASSIUM 4.5 mmol/L (3.5-5.1)
[2020-11-21] MEDS: INSULIN HUMULIN R 100 UNIT/ML 3ML SQ SCH ×3 (06:40→16:30)
[2020-11-21 08:07] VITALS: BP 142/78
[2020-11-21] MEDS ORDERED: TAMSULOSIN HCL 0.4 MG CAP.ER.24H PO SCH (09:00)
[2020-11-21] MEDS ORDERED: FLUCONAZOLE 100 MG TAB PO SCH (09:00)
[2020-11-21] MEDS: CEFTRIAXONE SODIUM 1 GM IVP SCH (10:18)
[2020-11-21] MEDS: ASPIRIN 81MG TAB.CHEW PO SCH (10:18)
[2020-11-21] MEDS: LOSARTAN 50 MG TABLET PO SCH (10:18)
[2020-11-21 11:01] VITALS: BP 151/92
[2020-11-21] MEDS: LACTATED RINGERS 1000ML 1,000 ML IV SCH (12:27)
[2020-11-21 16:28] VITALS: BP 144/72
== END 2020-11-21 18:40 | disposition home or self-care (01) ==
LOC: EDH 10:51 → EDHIP 14:01 → 3AH 11-20 02:34
PROVIDERS: ADMIT Internal Medicine; ATTEND Internal Medicine
DX: N39.0 Urinary tract infection, site not specified (principal); R33.9 Retention of urine, unspecified; I10 Essential (primary) hypertension; I25.2 Old myocardial infarction; E11.9 Type 2 diabetes mellitus without complications; I25.10 Atherosclerotic heart disease of native coronary artery without angina pectoris; E78.00 Pure hypercholesterolemia, unspecified; E78.6 Lipoprotein deficiency; E78.5 Hyperlipidemia, unspecified; E66.9 Obesity, unspecified; Z87.891 Personal history of nicotine dependence; Z86.73 Personal history of transient ischemic attack (TIA), and cerebral infarction without residual deficits; Z86.16 Personal history of COVID-19; Z95.5 Presence of coronary angioplasty implant and graft; Z79.82 Long term (current) use of aspirin; Z79.84 Long term (current) use of oral hypoglycemic drugs; Z79.899 Other long term (current) drug therapy; W18.39XA Other fall on same level, initial encounter; Y93.89 Activity, other specified; Y92.89 Other specified places as the place of occurrence of the external cause
CPT/HCPCS: 36415 ×3; 70450; 74176; 80048 ×2; 80053; 81001; 82948 ×8; 83605 ×2; 84145; 85025 ×3; 87040 ×2; 87077; 87088; 87186; 92610; 96361 ×2; 96374; 96376 ×2; 99284; A4344; G0378 ×53; J0696 ×4; J1815 ×2; J7030; J7120 ×3

== ENCOUNTER 2020-12-06 15:14 | Emergency (ER) | payer MEDICARE ==
[2020-12-06 16:14] LABS: APPEARANCE,URINE CLOUDY (CLEAR); BILIRUBIN,URINE NEGATIVE (NEGATIVE); COLOR,URINE YELLOW (YELLOW); GLUCOSE, URINE (UA) NEGATIVE (NEGATIVE); KETONES,URINE NEGATIVE (NEGATIVE); LEUKOCYTE ESTERASE ,URINE LARGE (NEGATIVE); NITRATE,URINE POSITIVE (NEGATIVE); OCCULT BLOOD,URINE MODERATE (NEGATIVE); PROTEIN,URINE TRACE mg/dL (NEGATIVE); UROBILINOGEN,URINE 0.2 mg/dL (0.2-1.0)
[2020-12-06 16:33] LABS: BACTERIA,URINE Moderate /HPF (None Seen); MUCUS,URINE Few LPF (None Seen); SQUAMOUS EPITHELIAL CELL,UR 0-2 /HPF (0-2); WBC,URINE 26-50 /HPF (0-1)
[2020-12-06] MEDS ORDERED: CEFTRIAXONE 1G VIAL ONE ×2 (16:47→16:49)
[2020-12-06] MEDS ORDERED: LIDOCAINE HCL-MPF 1% 2ML VIAL ONE (16:49)
== END 2020-12-06 17:33 | disposition home or self-care (01) ==
LOC: EDH 15:14
DX: T83.038A Leakage of other urinary catheter, initial encounter (principal); N30.00 Acute cystitis without hematuria; I10 Essential (primary) hypertension; E78.00 Pure hypercholesterolemia, unspecified; I25.2 Old myocardial infarction; Z86.73 Personal history of transient ischemic attack (TIA), and cerebral infarction without residual deficits; Z87.891 Personal history of nicotine dependence
CPT/HCPCS: 51702; 81001; 87077; 87088; 87186; 96372; 99284; J0696 ×2; J3490

== ENCOUNTER → 2022-12-08 | Outpatient (CLI) | payer MEDICARE ==
[~2022-12-08] MED LIST changes: -LOSA100T2 PO; +LOSA100T3 PO
== END | disposition home or self-care (01) ==
LOC: RAH 13:36
PROVIDERS: ATTEND Pain Medicine Interventional Pain Medicine
DX: M47.816 Spondylosis without myelopathy or radiculopathy, lumbar region (principal); M43.16 Spondylolisthesis, lumbar region; M25.78 Osteophyte, vertebrae; M48.061 Spinal stenosis, lumbar region without neurogenic claudication; M41.86 Other forms of scoliosis, lumbar region
CPT/HCPCS: 72100

== ENCOUNTER → 2024-04-17 | Outpatient (CLI) | payer OTHER ==
[~2024-04-17] MED LIST changes: -FURO20TA4 PO; -IBUP-2733 PO; +LOSA-420 PO; -LOSA100T3 PO
== END | disposition home or self-care (01) ==
LOC: RAH 10:00
PROVIDERS: ATTEND Internal Medicine
DX: N43.3 Hydrocele, unspecified (principal); N50.812 Left testicular pain
CPT/HCPCS: 76870